=== PATIENT | male | born 1980 | race Caucasian/White ===

== ENCOUNTER 2025-01-28 05:04 | Emergency (ER) | payer OTHER ==
[~2025-01-28] VITALS: Ht 188 cm; Wt 71.7 kg
[2025-01-28] MEDS ORDERED: Ondansetron HCl 2 MG / ML 2ML Vial IV PRN (05:35)
[2025-01-28 06:24] LABS: Alanine Aminotransfer (ALT/SGP 91.0 U/L (12-78); Albumin, Blood 3.2 g/dL (3.4-5.0); Albumin/Globulin Ratio 0.8 (0.8-1.8); Anion Gap 10.0 mmol/L (3-11); Aspartate Aminotrans (AST/SGOT 78.0 U/L (12-37); Bilirubin, Total 0.7 mg/dL (0.1-1.0); Blood Urea Nitrogen 18.0 mg/dL (8-24); CO2, Blood 25.0 mmol/L (21-32); Calcium, Blood 9.2 mg/dL (8.5-10.1); Chloride, Blood 104.0 mmol/L (98-108); Creatinine, Blood 0.78 mg/dL (0.60-1.20); Globulin, Blood 3.9 g/dL (2.2-4.0); Glucose, Blood 109.0 mg/dL (70-99); Potassium, Blood 3.5 mmol/L (3.5-5.5); Sodium, Blood 135.0 mmol/L (136-145); Total Protein, Blood 7.1 g/dL (6.4-8.2)
[2025-01-28] MEDS ORDERED: Lidocaine 2% Viscous Soln 15 ML UDC PO ONE (06:30)
[2025-01-28 06:39] LABS: BASOPHILS ABSOLUTE AUTO 0.05 K/mm3 (0.00-0.23); BASOPHILS PERCENT AUTO 1 % (0-2); EOSINOPHILS ABSOLUTE AUTO 0.09 K/mm3 (0.00-0.68); EOSINOPHILS PERCENT AUTO 1 % (0-6); Hematocrit 38.3 % (37.0-53.0); Hemoglobin 13.2 g/dL (13.5-17.5); IMMATURE GRAN ABSOLUTE AUTO 0.32 K/mm3 (0.00-0.10); IMMATURE GRAN PERCENT AUTO 5 % (0-1); LYMPHOCYTES ABSOLUTE AUTO 1.40 K/mm3 (0.84-5.20); LYMPHOCYTES PERCENT AUTO 21 % (21-46); MONOCYTES ABSOLUTE AUTO 1.87 K/mm3 (0.16-1.47); MONOCYTES PERCENT AUTO 28 % (4-13); Mean Corpuscular HGB Conc 34.5 g/dL (31.5-36.5); Mean Corpuscular Volume 97 fL (80-100); NEUTROPHILS ABSOLUTE AUTO 3.02 K/mm3 (1.96-9.15); NEUTROPHILS PERCENT AUTO 45 % (41-73); NRBC ABSOLUTE 0.00 K/mm3 (0.00-0.02); NRBC Auto 0.0 /100 WBC (0.0-0.2); Platelet Count 201 K/mm3 (150-400); RDW Coefficient Variation 12.9 % (11.7-14.2); RDW Standard Deviation 45.5 fL (35.1-46.3)
[2025-01-28] MEDS ORDERED: Ketorolac Tromethamine 30mg Vial IV ONE (07:05)
[2025-01-28] MEDS ORDERED: OMEP20ER PO (09:39)
== END 2025-01-28 10:00 | disposition home or self-care (01) ==
LOC: ER 05:04
PROVIDERS: Emergency Medicine
DX: K22.6 Gastro-esophageal laceration-hemorrhage syndrome (principal); K12.0 Recurrent oral aphthae; E86.0 Dehydration; R74.8 Abnormal levels of other serum enzymes
CPT/HCPCS: 74220; 80053; 83690; 85025; 96361; 96374; 96375; 99284-25; A9270; J1885; J2405; J7120